=== PATIENT | male | born 1945 | race Caucasian/White ===

== ENCOUNTER → 2024-09-03 13:10 | Outpatient (BNVA) | payer OTHER, SELFPAY | PROVIDERS: Family Provider Family Medicine; PCP Family Medicine; Referring Provider Nurse Practitioner Family; Visit Provider Nurse Practitioner Family | DX: L21.8 Other seborrheic dermatitis (principal); L72.0 Epidermal cyst; L81.4 Other melanin hyperpigmentation; D69.2 Other nonthrombocytopenic purpura; L85.3 Xerosis cutis | CPT/HCPCS: 11102; 17000; 99204 ==

== ENCOUNTER → 2024-09-29 11:13 | Outpatient (BNVA) | payer OTHER, SELFPAY | PROVIDERS: Family Provider Family Medicine; PCP Family Medicine; Visit Provider Student in an Organized Health Care Education/Training Program | DX: K50.90 Crohn's disease, unspecified, without complications (principal) | CPT/HCPCS: 99204 ==

== ENCOUNTER → 2024-10-01 13:02 | Outpatient (BNVA) | payer OTHER, SELFPAY | PROVIDERS: Family Provider Family Medicine; PCP Family Medicine; Visit Provider Dermatology | DX: L72.0 Epidermal cyst (principal); D69.2 Other nonthrombocytopenic purpura; D48.5 Neoplasm of uncertain behavior of skin; R20.8 Other disturbances of skin sensation; R23.8 Other skin changes; L53.8 Other specified erythematous conditions; D04.62 Carcinoma in situ of skin of left upper limb, including shoulder | CPT/HCPCS: 11404; 12032; 17262; 99213 ==

== ENCOUNTER → 2024-10-22 08:43 | Outpatient (BNVA) | payer OTHER, SELFPAY | PROVIDERS: Family Provider Family Medicine; PCP Family Medicine; Visit Provider Dermatology | DX: D04.62 Carcinoma in situ of skin of left upper limb, including shoulder (principal); D48.5 Neoplasm of uncertain behavior of skin; R20.8 Other disturbances of skin sensation; R23.8 Other skin changes; L53.8 Other specified erythematous conditions | CPT/HCPCS: 11423; 12042; 99213 ==

== ENCOUNTER 2024-12-02 09:13 | Day surgery (SDC) | payer OTHER, SELFPAY ==
[2024-12-02 09:34] VITALS: BP 122/56; PULSE 71; RESP 18; TEMP 36.7; O2SAT 93; BMI 26.4
--- NOTE | 2024-12-02 10:35 | ANES.PREANE2 ---
Pre-Anesthetic Assessment Height/Weight: Height 1.85 m Weight 90.718 kg Temp Pulse Resp BP Pulse Ox O2 Del Method 98.0 F 71 18 122/56 93 Room Air 12/02/24 09:34 12/02/24 09:34 12/02/24 09:34 12/02/24 09:34 12/02/24 09:34 12/02/24 09:34 Preop Diagnosis: Hx Chron's Dz Operation Date: 12/02/24 10:30 Proposed Procedures p Colonoscopy 50625 [id number], K50.90 50082(Not Applicable) - Jacobo Bales MD s EGD with Biopsy(Not Applicable) - Jacobo Bales MD Was Beta Kobe taken within 24 hours: Yes Was Clonidine taken within 24 hours: N/A Last intake: Intake Last Liquid Date 12/02/24 Last Liquid Time 02:00 Last Solid Date 11/29/24 Last Solid Time 20:00 Social Tobacco 1-2pk/day Exam alert, oriented x 3, clear to auscultation bilaterally and regular rate & rhythm Airway Submandibular: within normal limits Cervical ROM: within normal limits Mallampati: Class II Dentition: false History/ROS No significant history except as noted and No significant complaints Pulmonary Chronic Obstructive Pulmonary Disease, Exertional Dyspnea and Sleep Apnea CV/HEM Coronary Artery Disease and Hypertension Stents None reported Hepatic None reported GI Gastroesophageal Reflux Disease Metabolic Diabetes Mellitus Musc/skel Lower Back Pain and Osteoarthritis/DJD Neuropsych None reported Anesthetic Plan ASA status: 3 Anesthesia: Anesthesia Evaluation and MAC Risk of > 500 ml blood loss (7ml/kg in children): No Medications/Allergies Home Medications ?Medication ?Instructions ?Recorded ?Confirmed ?Last Taken ?Type atorvastatin 80 mg tablet (Lipitor) 80 mg PO DAILY 09/29/24 10/15/24 11/27/24 History cholecalciferol (vitamin D3) 50 50 mcg PO DAILY 09/29/24 10/15/24 11/27/24 History mcg (2,000 unit) capsule clopidogrel 75 mg tablet 75 mg PO DAILY 09/29/24 10/15/24 11/27/24 History empagliflozin 25 mg tablet 25 mg PO DAILY 09/29/24 10/15/24 11/27/24 History furosemide 20 mg tablet (Lasix) 20 mg PO BID PRN swelling 09/29/24 10/15/24 Unknown History isosorbide mononitrate 30 mg 30 mg PO DAILY 09/29/24 12/02/24 12/02/24 History tablet,extended release 24 hr 0730 ketoconazole 2 % topical cream 1 applic topical DAILY 09/29/24 10/15/24 Unknown History latanoprost 0.005 % eye drops 1 drp ophthalmic (eye) DAILY 09/29/24 10/15/24 11/27/24 History levothyroxine 50 mcg capsule 50 mcg PO DAILY 09/29/24 10/15/24 11/27/24 History (Tirosint) lisinopril 10 mg tablet 10 mg PO DAILY 09/29/24 10/15/24 11/27/24 History metoprolol tartrate 25 mg tablet 12.5 mg PO BID 09/29/24 12/02/24 12/02/24 History 0730 mirtazapine 15 mg tablet 15 mg PO DAILY 09/29/24 10/15/24 11/27/24 History multivitamin 1 tab PO DAILY 09/29/24 10/15/24 11/27/24 History mupirocin 2 % topical ointment 1 applic topical BID 09/29/24 10/15/24 Unknown History (Centany) nicotine (polacrilex) 4 mg gum 4 mg buccal Q2H 09/29/24 10/15/24 Unknown History omeprazole 20 mg capsule,delayed 20 mg PO DAILY 09/29/24 10/15/24 11/27/24 History release potassium bicarbonate and chloride 1 ea PO DAILY 09/29/24 10/15/24 11/27/24 History 25 mEq effervescent tablet ropinirole 4 mg tablet 4 mg PO DAILY 09/29/24 10/15/24 11/27/24 History tiotropium bromide 2.5 2 inh inhalation QAM 09/29/24 10/15/24 11/27/24 History mcg/actuation mist for inhalation (Spiriva Respimat) venlafaxine 75 mg tablet 75 mg PO DAILY 09/29/24 10/15/24 11/27/24 History aspirin 81 mg tablet 81 mg PO DAILY 10/15/24 10/15/24 11/27/24 History glipizide 10 mg tablet 10 mg PO BID 10/15/24 10/15/24 11/27/24 History bisacodyl 5 mg tablet,delayed 5 mg PO DAILY #8 tabs 10/22/24 11/27/24 Unknown Rx release (Dulcolax (bisacodyl)) magnesium citrate 2,368 ml PO BID constipation #592 10/22/24 11/27/24 Unknown Rx mL gabapentin 100 mg capsule 100 mg PO DAILY 11/27/24 11/27/24 11/27/24 History Allergies Allergy/AdvReac Type Severity Reaction Status Date / Time Sulfa (Sulfonamide Allergy Unknown Unknown Verified 10/15/24 09:16 Antibiotics) Current Medications Generic Name Dose Route Start Last Admin Trade Name Freq PRN Reason Stop Dose Admin Sodium Chloride 1,000 mls @ 15 mls/hr 12/02/24 09:23 12/02/24 09:42 Sodium Chloride 0.9% IV 12/03/24 09:22 15 mls/hr .Q24H PRN Administration COLONOSCOPY FLUIDS PFSH Anesthesia Social History Smoking and tobacco/nicotine status: current every day tobacco/nicotine user Data Anesthesia 12/02/24 10:12
[2024-12-02 10:39] LABS: Anion Gap 16.2 (5-19); Blood Urea Nitrogen 22 mg/dL (8-23); Calcium 9.3 mg/dL (8.5-10.5); Carbon Dioxide 28 mmol/L (22-29); Chloride 100 mmol/L (98-107); Creatinine Clr Calc Pharmacy 52.6420; Glucose 143 mg/dL (65-115); Osmolality Calculated 298 mOsm/kg (285-295); Potassium 3.2 mmol/L (3.5-5.1); Sodium 141 mmol/L (136-145)
--- NOTE | 2024-12-02 10:41 | P.HP_ITS ---
Same Day Surgery H&P Indication for Procedure/HPI DATE OF PROCEDURE: December 02, 2024 CHIEF COMPLAINT/INDICATIONFOR SURGICAL PROCEDURE: diarrhea, crohns disease PREOP DIAGNOSIS: diarrhea, crohns disease PLANNED PROCEDURE: Operation Date: 12/02/24 10:30 Proposed Procedures p Colonoscopy 46200 [id number] 22010, K50.90 46756(Not Applicable) - Jacobo Bales MD s EGD with Biopsy(Not Applicable) - Jacobo Bales MD Medications/Allergies* Home Medications ?Medication ?Instructions ?Recorded ?Confirmed ?Type atorvastatin 80 mg tablet (Lipitor) 80 mg PO DAILY 10/15/24 History cholecalciferol (vitamin D3) 50 50 mcg PO DAILY 10/15/24 History mcg (2,000 unit) capsule clopidogrel 75 mg tablet 75 mg PO DAILY 09/29/2406/10 History empagliflozin 25 mg tablet 25 mg PO DAILY 09/29/2406/10 History furosemide 20 mg tablet (Lasix) 20 mg PO BID PRN swell ing 09/29/24 10/15/24 History isosorbide mononitrate 30 mg 30 mg PO DAILY 09/29/24 0 12/02/24 History tablet,extended release 24 hr ketoconazole 2 % topical cream 1 applic topical DAILY 09/29/24 10/15/24 History latanoprost 0.005 % eye drops 1 drp ophthalmic (eye) D AILY 09/29/24 10/15/24 History levothyroxine 50 mcg capsule 50 mcg PO DAILY 09/29/24 10/15/24 History (Tirosint) lisinopril 10 mg tablet 10 mg PO DAILY 09/29/2406/10 History metoprolol tartrate 25 mg tablet 12.5 mg PO BID 12/02/24 History mirtazapine 15 mg tablet 15 mg PO DAILY 09/29/2406/10 History multivitamin 1 tab PO DAILY 09/29/2406/10 History mupirocin 2 % topical ointment 1 applic topical BID 10/15/24 History (Centany) nicotine (polacrilex) 4 mg gum 4 mg buccal Q2H 5 10/15/24 History omeprazole 20 mg capsule,delayed 20 mg PO DAILY 10/15/24 History release potassium bicarbonate and chloride 1 ea PO DAILY 09/2910/15/24 History 25 mEq effervescent tablet ropinirole 4 mg tablet 4 mg PO DAILY 09/29/2410/15 History tiotropium bromide 2.5 2 inh inhalation QAM 5 10/15/24 History mcg/actuation mist for inhalation (Spiriva Respimat) venlafaxine 75 mg tablet 75 mg PO DAILY 09/29/2406/10 History aspirin 81 mg tablet 81 mg PO DAILY 10/15/2406/10 History glipizide 10 mg tablet 10 mg PO BID 10/15/24 History gabapentin 100 mg capsule 100 mg PO DAILY 11/27/24 History Allergies/Adverse Reactions Allergy/AdvReac Type Severity Reaction Status Date / Time Sulfa (Sulfonamide Allergy Unknown Unknown Verified 10/15/24 09:16 Antibiotics) Current Medications: Generic Name Dose Route Start Last Admin Trade Name Freq PRN Reason Stop Dose Admin Sodium Chloride 1,000 mls @ 15 mls/hr 12/02/24 09:23 12/02/24 09:42 Sodium Chloride 0.9% IV 12/03/24 09:22 15 mls/hr .Q24H PRN Administration COLONOSCOPY FLUIDS Pertinent History/Comorbid Conditions* Social History Smoking and tobacco/nicotine status: current every day tobacco/nicotine user Pertinent Exam Findings alert, oriented x 3, clear to auscultation bilaterally, regular rate & rhythm and procedure specific exam findings abdomen soft, nt, nd Recommendations Risks and benefits of procedure reviewed and Patient/family agree to proceed Surgery/Procedure today Coding Level of Care Code Acute Code for Chg Fwd
--- NOTE | 2024-12-02 10:41 | W.PM.OPSFHP ---
Same Day Surgery H&P Indication for Procedure/HPI DATE OF PROCEDURE: December 02, 2024 CHIEF COMPLAINT/INDICATIONFOR SURGICAL PROCEDURE: diarrhea, crohns disease PREOP DIAGNOSIS: diarrhea, crohns disease PLANNED PROCEDURE: Operation Date: 12/02/24 10:30 Proposed Procedures p Colonoscopy [id number], K50.90 17319(Not Applicable) - Jacobo Bales MD s EGD with Biopsy(Not Applicable) - Jacobo Bales MD Medications/Allergies* Home Medications ?Medication ?Instructions ?Recorded ?Confirmed ?Type atorvastatin 80 mg tablet (Lipitor) 80 mg PO DAILY 09/29/24 10/15/24 History cholecalciferol (vitamin D3) 50 50 mcg PO DAILY 09/29/24 10/15/24 History mcg (2,000 unit) capsule clopidogrel 75 mg tablet 75 mg PO DAILY 09/29/24 10/15/24 History empagliflozin 25 mg tablet 25 mg PO DAILY 09/29/24 10/15/24 History furosemide 20 mg tablet (Lasix) 20 mg PO BID PRN swelling 09/29/24 10/15/24 History isosorbide mononitrate 30 mg 30 mg PO DAILY 09/29/24 12/02/24 History tablet,extended release 24 hr ketoconazole 2 % topical cream 1 applic topical DAILY 09/29/24 10/15/24 History latanoprost 0.005 % eye drops 1 drp ophthalmic (eye) DAILY 09/29/24 10/15/24 History levothyroxine 50 mcg capsule 50 mcg PO DAILY 09/29/24 10/15/24 History (Tirosint) lisinopril 10 mg tablet 10 mg PO DAILY 09/29/24 10/15/24 History metoprolol tartrate 25 mg tablet 12.5 mg PO BID 09/29/24 12/02/24 History mirtazapine 15 mg tablet 15 mg PO DAILY 09/29/24 10/15/24 History multivitamin 1 tab PO DAILY 09/29/24 10/15/24 History mupirocin 2 % topical ointment 1 applic topical BID 09/29/24 10/15/24 History (Centany) nicotine (polacrilex) 4 mg gum 4 mg buccal Q2H 09/29/24 10/15/24 History omeprazole 20 mg capsule,delayed 20 mg PO DAILY 09/29/24 10/15/24 History release potassium bicarbonate and chloride 1 ea PO DAILY 09/29/24 10/15/24 History 25 mEq effervescent tablet ropinirole 4 mg tablet 4 mg PO DAILY 09/29/24 10/15/24 History tiotropium bromide 2.5 2 inh inhalation QAM 09/29/24 10/15/24 History mcg/actuation mist for inhalation (Spiriva Respimat) venlafaxine 75 mg tablet 75 mg PO DAILY 09/29/24 10/15/24 History aspirin 81 mg tablet 81 mg PO DAILY 10/15/24 10/15/24 History glipizide 10 mg tablet 10 mg PO BID 10/15/24 10/15/24 History gabapentin 100 mg capsule 100 mg PO DAILY 11/27/24 11/27/24 History Allergies/Adverse Reactions Allergy/AdvReac Type Severity Reaction Status Date / Time Sulfa (Sulfonamide Allergy Unknown Unknown Verified 10/15/24 09:16 Antibiotics) Current Medications: Generic Name Dose Route Start Last Admin Trade Name Freq PRN Reason Stop Dose Admin Sodium Chloride 1,000 mls @ 15 mls/hr 12/02/24 09:23 12/02/24 09:42 Sodium Chloride 0.9% IV 12/03/24 09:22 15 mls/hr .Q24H PRN Administration COLONOSCOPY FLUIDS Pertinent History/Comorbid Conditions* Social History Smoking and tobacco/nicotine status: current every day tobacco/nicotine user Pertinent Exam Findings alert, oriented x 3, clear to auscultation bilaterally, regular rate & rhythm and procedure specific exam findings abdomen soft, nt, nd Recommendations Risks and benefits of procedure reviewed and Patient/family agree to proceed Surgery/Procedure today Coding Level of Care Code Acute Code for Chg Fwortiz
[2024-12-02 11:11] VITALS: BP 95/60; PULSE 69; RESP 20; TEMP 36.1; O2SAT 95
[2024-12-02 11:26] VITALS: BP 96/58; PULSE 69; RESP 18; O2SAT 95
[2024-12-02 11:32] VITALS: BP 109/56; PULSE 75; RESP 18; O2SAT 94
--- NOTE | 2024-12-02 12:00 | ANE.PACU2 ---
Inpatient post-anesthesia follow up: Airway intact: Yes Vital signs: Temperature 97.0 F Pulse Rate 75 Respiratory Rate 18 Blood Pressure 109/56 Pulse Oximetry 94 Oxygen Delivery Me thod Room Air Oxygen Flow Rate Fraction of Inspir ed Oxygen Nausea and vomiting: No Pain level: 1 Mental status: Baseline
== END 2024-12-02 12:00 | disposition home or self-care (01) ==
PROVIDERS: Anesthesiology; PCP Family Medicine; Visit Provider Student in an Organized Health Care Education/Training Program
PROC: 0DJD8ZZ Inspection of Lower Intestinal Tract, Via Natural or Artificial Opening Endoscopic (ICD-10-PCS; CPT 45378; principal; 2024-12-02 10:30)
PROC: 0DJ08ZZ Inspection of Upper Intestinal Tract, Via Natural or Artificial Opening Endoscopic (ICD-10-PCS; 2024-12-02 10:30)
DX: K50.90 Crohn's disease, unspecified, without complications (principal); K52.9 Noninfective gastroenteritis and colitis, unspecified; K29.70 Gastritis, unspecified, without bleeding; K63.89 Other specified diseases of intestine; K21.9 Gastro-esophageal reflux disease without esophagitis; Z79.82 Long term (current) use of aspirin; F17.200 Nicotine dependence, unspecified, uncomplicated; J44.9 Chronic obstructive pulmonary disease, unspecified; G47.30 Sleep apnea, unspecified; E11.9 Type 2 diabetes mellitus without complications
CPT/HCPCS: 36416; 43239; 45380; 80048; 82962; 88305; J2704; J7030

== ENCOUNTER → 2024-12-18 12:52 | Outpatient (BNVA) | payer OTHER, SELFPAY | PROVIDERS: PCP Family Medicine; Visit Provider Student in an Organized Health Care Education/Training Program | DX: Z09 Encounter for follow-up examination after completed treatment for conditions other than malignant neoplasm (principal); R03.0 Elevated blood-pressure reading, without diagnosis of hypertension | CPT/HCPCS: 99213 ==

== ENCOUNTER → 2025-01-01 13:25 | Outpatient (BNVA) | payer OTHER, SELFPAY | PROVIDERS: PCP Family Medicine; Visit Provider Internal Medicine | DX: R01.1 Cardiac murmur, unspecified (principal); R07.9 Chest pain, unspecified; F17.200 Nicotine dependence, unspecified, uncomplicated; I25.10 Atherosclerotic heart disease of native coronary artery without angina pectoris; Z95.5 Presence of coronary angioplasty implant and graft | CPT/HCPCS: 93005; 99204 ==